=== PATIENT | male | born 1995 ===

== ENCOUNTER 2019-06-23 16:13 | Emergency (ER) | payer OTHER ==
[~2019-06-23] VITALS: Ht 162.6 cm; Wt 75.0 kg
--- NOTE | 2019-06-23 16:26 | NUR ---
PT BIB EMS FOR FOOT PAIN/ CELLULITIS OF RIGHT LEG. PT STATES HE HAS A BROKEN LEG, WAS ASSUALTED. PT REQUESTING WHEELCHAIR, MEAL, AND ROOM TO STAY IN OVERNIGHT. PT DENIES MEDICAL HX OR DRUG USE. DENIES SOB, OR COUGH. RIGHT HEAL HAS SCAB AND ERYTHEMA OVER [place]. FEET ARE DIRTY.
[2019-06-23 17:13] LABS: BASOPHILS # (AUTO) 0.03 x10^3/uL (0-0.1); BASOPHILS % (AUTO) 0 % (0-1); EOSINOPHILS % (AUTO) 0 % (1-7); LYMPHOCYTES # (AUTO) 1.56 x10^3/uL (1-3.4); LYMPHOCYTES % (AUTO) 11 % (22-44); MD NO; MEAN CORPUSCULAR HEMOGLOBIN 29.5 pg (27.5-34.5); MEAN CORPUSCULAR HGB CONC 33.3 g/dL (33.2-36.2); MEAN CORPUSCULAR VOLUME 88.7 fL (81-97); MONOCYTES # (AUTO) 1.42 x10^3/uL (0.2-0.8); MONOCYTES % (AUTO) 10 % (2-9); NEUTROPHILS # (AUTO) 11.28 x10^3/uL (1.8-6.8); NEUTROPHILS % (AUTO) 79 % (42-75); PLATELET COUNT 243 x10^3/uL (130-400); RED BLOOD COUNT 5.05 x10^6/uL (4.38-5.82); RED CELL DISTRIBUTION WIDTH 14.2 % (9.4-14.8)
[2019-06-23 17:16] LABS: AMPHETAMINE SCREEN, URINE Negative (Negative); BARBITURATE SCREEN, URINE Negative (Negative); BENZODIAZEPINE SCREEN, URINE Negative (Negative); CANNABINOID SCREEN, URINE Positive (Negative); COCAINE SCREEN, URINE Negative (Negative); METHADONE SCREEN, URINE Negative (Negative); OPIATE SCREEN, URINE Negative (Negative)
[2019-06-23 17:21] LABS: ANION GAP 9 mmol/L (5-15); CALCIUM 8.6 mg/dL (8.5-10.1); CHLORIDE 100 mmol/L (98-107)
[2019-06-23 17:33] LABS: CREATINE KINASE, TOTAL 186 U/L (39-308); CREATININE 1.01 mg/dL (0.7-1.3)
[2019-06-23 17:34] LABS: SALICYLATE LEVEL < 1.7 mg/dL (2.8-20.0)
[2019-06-23 17:43] VITALS: BP 125/71
--- NOTE | 2019-06-23 17:45 | NUR ---
MEAL TRAY GIVEN. VSS.
[2019-06-23] MEDS ORDERED: SULFAMETH./TRIMETHOPRIM DS 800MG/160MG TABLET PO ONE (18:00)
[2019-06-23] MEDS ORDERED: SULFAMETH./TRIMETHOPRIM DS 800MG/160MG TABLET ONE (18:07)
== END 2019-06-23 19:02 | disposition home or self-care (01) ==
LOC: ED 17:31
DX: S80.11XA Contusion of right lower leg, initial encounter (principal); L03.115 Cellulitis of right lower limb; W01.0XXA Fall on same level from slipping, tripping and stumbling without subsequent striking against object, initial encounter; Y93.89 Activity, other specified; Y92.89 Other specified places as the place of occurrence of the external cause; Y99.8 Other external cause status
CPT/HCPCS: 36415; 80048; 80307; 82550; 84443; 85025; 99284